=== PATIENT | female | born 1935 | race Caucasian/White ===

== ENCOUNTER 2018-05-23 13:10 | Inpatient (IN) | payer OTHER, MEDICAID ==
[~2018-05-23] VITALS: Ht 154.9 cm; Wt 59.9 kg
[2018-05-23 13:12] VITALS: BP 127/65
--- NOTE | 2018-05-23 13:42 | NUR ---
BP LOW AFTER CARDIZEM BOLUS. DR GODINEZ NOTIFIED. NS BOLUS GIVEN
[2018-05-23] MEDS ORDERED: FLONASE 0.05%50 MCG NASAL (13:43)
[2018-05-23] MEDS ORDERED: PRADAXA150 MG PO (13:43)
[2018-05-23] MEDS ORDERED: REMERON15 MG PO (13:44)
[2018-05-23] MEDS ORDERED: COLACE100 MG PO (13:44)
[2018-05-23] MEDS ORDERED: TYLENOL325 MG PO (13:44)
[2018-05-23] MEDS ORDERED: ZOFRAN ODT4 MG PO (13:45)
[2018-05-23] MEDS ORDERED: MIRALAX17 GM PO (13:45)
[2018-05-23] MEDS ORDERED: TOPROL XL25 MG PO (13:45)
[2018-05-23] MEDS ORDERED: SENNA8.6 MG PO (13:45)
[2018-05-23] MEDS ORDERED: ZANTAC 150MG T150 MG PO (13:45)
[2018-05-23] MEDS ORDERED: VITAMINC500 PO (13:46)
[2018-05-23] MEDS ORDERED: DILTIAZEM 24HR180 M2 PO (13:46)
[2018-05-23] MEDS ORDERED: LASIX 40 MG TAB40 M2 PO (13:46)
[2018-05-23] MEDS ORDERED: LIDOCAINE PAIN1 EACH TOP (13:47)
[2018-05-23] MEDS ORDERED: IRON325 PO (13:47)
[2018-05-23] MEDS ORDERED: VITAMIN D1000 UNI1 PO (13:48)
[2018-05-23] MEDS ORDERED: POTASSIUM20 PO (13:48)
[2018-05-23] MEDS ORDERED: ZAROXOLYN 5MG TA5 MG PO (13:48)
[2018-05-23] MEDS ORDERED: SIMETHICON CHEW80 M1 PO (13:48)
[2018-05-23 13:49] LABS: HEMATOCRIT 37.3 % (37.0-47.0); HEMOGLOBIN 11.7 gm/dL (12.0-15.0); MCHC 31.5 g/dL (28.0-37.0); MCV 88.8 fL (80.0-100.0); MPV 8.7 fl. (7.2-11.1); NUCLEATED RBCS 2 /100WBC; PLATELET COUNT* 295 thou/uL (150-400); RDW-CV 18.6 % (10.5-14.5); WBC 13.3 thou/uL (4.0-11.0)
[2018-05-23 13:58] LABS: CALCIUM 8.5 mg/dL (8.5-10.1); CREATININE 1.5 mg/dL (0.6-1.3); POTASSIUM 3.4 mmol/L (3.5-5.1)
[2018-05-23 14:02] LABS: ABSOLUTE LYMPHOCYTES 0.8 thou/uL (0.8-5.3); ABSOLUTE MONOCYTES 0.4 thou/uL (0.0-1.2); ABSOLUTE NEUTROPHILS 12.1 thou/uL (1.6-8.1); PLATELET ESTIMATE ADEQUATE
[2018-05-23 14:04] LABS: ANISOCYTOSIS 1+; HYPOCHROMASIA 1+
[2018-05-23 14:11] LABS: ALBUMIN 2.5 g/dL (3.4-5.0); MAGNESIUM 2.3 mg/dL (1.8-2.4); TOTAL BILIRUBIN 0.5 mg/dL (<0.1-1.0); TOTAL PROTEIN 5.5 g/dL (6.4-8.2); TROPONIN-I LEVEL 0.07 ng/mL (<0.06)
--- NOTE | 2018-05-23 20:14 | NUR ---
VSS, ASSUMED CARE OF PT FROM ER, AT 1830, PT IS CONFUSED AND IS A&O1-2, ON 2L NC TRACING AFIB ON THE MONITOR, STATES BELLY PAIN AND HAS HAQ IN PLACE AND IS DRAIINING, PT IS MAS ASSIST UP AND HAS FALL PRECAUTIONS IN PLACE WITH CALL LIGHT IN REACH, PT HAS CARDIEM DRIP AT 5 ML/HR, HOURLY ROUNDS COMPLETED, PT ADMIT PART 1 AND 2 HAVE BEEN COMPLETED,
--- NOTE | 2018-05-23 20:26 | NUR ---
PHARMACY DOSENT CARRY PRADAXA AND JOVANNY BYNUM WANTED 110MG AND PT USES 150MG SO, THIS PT WILL NEED TO BRING IN HOME DOSE AND WORK DR TO FIND A THE RIGHT MG DOSE.
[2018-05-24] VITALS: BP 95/55
[2018-05-24 04:00] VITALS: BP 125/74
--- NOTE | 2018-05-24 05:21 | NUR ---
FINISHED ADMIT ASSESSMENT. PT C/O PAIN AND DISCOMFORT AND NOTIFIED PHYSICIAN. GOT PAIN MEDICATION ORDERED. Q2TURN, ABLE TO MAKE SOME NEEDS KNOWN, CONFUSED AND IS ABOUT A & O X2. HAQ DRAINING APPROPRIATELY. WILL CONTINUE TO MONITOR.
--- NOTE | 2018-05-24 06:13 | NUR ---
PT HAS BEEN TURNED Q2HR BY THIS NURSE AND MANAGER ORGANIZATIONAL ON FLOOR. NO WOUNDS NOTED, PT HAS BEEN HELPING TO TURN, AND SOME PAIN IS NOTED FROM PT DURING TURNS. WILL CONTINUE TO MONITOR AND TO CONTROL PAIN.
[2018-05-24 08:45] VITALS: BP 123/72
--- NOTE | 2018-05-24 09:30 | NUR ---
Pt is A&O with confusion, dtr at bedside to provide accurate . Resides at [facility], spoke with Janet at [facility], they are able to accept Pt back at dc. Pt is wc bound, dtr states that staff assist with all IADLS, including pushing Pt's wc. Pt wears o2. Goal is to return to [facility] at dc. Following.
--- NOTE | 2018-05-24 11:10 | EKG ---
[place] [address] ELECTROCARDIOGRAM REPORT Name: KATINAATAHIRAGRETCHEN Room: [address] ADM IN .R.#: [id number] Admission: 05/23/18 Attend Phys: Amelia Eagle Discharge: Date of : 39 Report #: [id number] THIS REPORT FOR: //name// [facility] ED Test Date: 2018-05-23 Test Time: 13:20:44 Pat Name: GRETCHEN SMITH Department: Room: [facility] Gender: F Senior Pharmacy Technician: JACK : 1935 Requested By: Bruce Walker Order Number: [id number] MD: Adryan Cramer Measurements Intervals Aurora Rate: 145 P: PA: QRS: -28 QRSD: 104 T: 169 QT: 264 QTc: 410 Interpretive Statements Atrial fibrillation with rapid V-rate Repolarization abnormality, prob rate related Baseline wander in lead(s) I,II,III,aVL,aVF,V1,V2,V3,V4,V5,V6 No previous ECG available for comparison Electronically Signed On 05-24-2018 11:09:57 CDT by Adryan Cramer [email or web address] <ELECTRONICALLY SIGNED> By: Adryan Cramer MD, [facility] 05/24/18 1109 1320 1320 Adryan Cramer MD, FAC /EPI
[2018-05-24 11:54] VITALS: BP 117/99
--- NOTE | 2018-05-24 12:44 | 2DMMODE ---
[place] [address] 2 D/M-MODE ECHOCARDIOGRAM Name: GRETCHEN SMITH Yaritza Room: [address] IN [facility]#: [id number] Admission: 05/23/18 Attend Phys: Pawan Gonzalez Discharge: Date of : 39 Date of Service: 05/24/18 1244 Report #: [id number] THIS REPORT FOR: //name// APPROVED REPORT Study performed: 05/24/2018 11:09:58 EXAM: Comprehensive 2D, Doppler, and color-flow Echocardiogram Patient Location: In-Patient Room #: [facility] Status: routine BSA: 1.58 HR: 108 bpm BP: 117/99 mmHg Rhythm: Atrial Fibrillation Other Information Study Quality: Good Indications Atrial Fibrillation 2D Dimensions LVEF(%): 73.95 (>50%) IVSd: 11.03 (7-11mm) LVOT Diam: 18.98 (18-24mm) LVDd: 46.74 mm PWd: 9.42 (7-11mm) Ascending Ao: 47.81 (22-36mm) LVDs: 26.72 (25-40mm) Aortic Root: 33.28 mm Gilman's LVEF: 73.95 % Volumes Left Atrial Volume (Systole) LA ESV Index: 70.70 mL/m2 Aortic Valve AoV Peak Rehan.: 1.55 m/s AO Peak Gr.: 9.64 mmHg LVOT Max P.49 mmHg AO Mean Gr.: 4.80 mmHg LVOT Mean P.88 mmHg LVOT Max V: 1.27 m/s AO V2 VTI: 22.52 cm LVOT Mean V: 0.76 m/s BRANDY (VTI): 2.51 cm2 LVOT V1 VTI: 19.96 cm AI Berkshire: 1.62 m/s2 AI PHT: 715.12 [place] [address] 2 D/M-MODE ECHOCARDIOGRAM Name: KATIANATAHIRAGRETCHEN Vigil Room: [address] [facility].#: [id number] Admission: 05/23/18 Attend Phys: Pawan Gonzalez Discharge: Date of : 39 Date of Service: 05/24/18 1244 Report #: [id number] Mitral Valve MV Decel. Time: 125.70 ms MV PHT: 36.45 ms MVA (PHT): 6.04 cm2 TDI Medial E' Rehan.: 0.08 m/s Lateral E' Rehan.: 0.14 m/s Pulmonary Valve PV Peak Rehan.: 0.79 m/s PV Peak Gr.: 2.51 mmHg Tricuspid Valve RAP Estimate: 5.00 mmHg TR Peak Gr.: 21.57 mmHg RVSP: 26.57 mmHg PA Pressure: 26.57 mmHg Left Ventricle The left ventricle is normal size. There is normal LV segmental wall motion. There is normal left ventricular wall thickness. Left ventricular systolic function is normal. The left ventricular ejection fraction is within the normal range. LVEF is 55-60%. This study is not technically sufficient to allow evaluation of the LV diastolic function due to atrial fibrillation. Right Ventricle The right ventricle is normal size. The right ventricular systolic function is normal. Atria Left atrium is severely dilated. The right atrium size is normal. Aortic Valve Mild aortic valve sclerosis. Moderate aortic regurgitation. There is no aortic valvular stenosis. Mitral Valve The mitral valve is normal in structure. Moderate to severe mitral regurgitation No evidence of mitral valve stenosis. Tricuspid Valve The tricuspid valve is normal in structure. Mild tricuspid regurgitation. No pulmonary hypertension[place] [address] 2 D/M-MODE ECHOCARDIOGRAM Name: GRETCHEN SMITH Room: [address]#: [id number] Admission: 05/23/18 Attend Phys: Pawan Gonzalez Discharge: Date of : 39 Date of Service: 05/24/18 1244 Report #: [id number] The pulmonary valve is normal in structure. Mild pulmonic regurgitation. Great Vessels The aortic root and ascending aorta is mildly dilated IVC is normal in size and collapses with >50% inspiration Pericardium There is no pericardial effusion. <Conclusion> The left ventricle is normal size. There is normal left ventricular wall thickness. Left ventricular systolic function is normal. The left ventricular ejection fraction is within the normal range. LVEF is 55-60%. This study is not technically sufficient to allow evaluation of the LV diastolic function due to atrial fibrillation. The right ventricle is normal size. Left atrium is severely dilated. Mild aortic valve sclerosis. Moderate aortic regurgitation. There is no aortic valvular stenosis. The mitral valve is normal in structure. Moderate to severe mitral regurgitation No evidence of mitral valve stenosis. The tricuspid valve is normal in structure. Mild tricuspid regurgitation. No pulmonary hypertension. IVC is normal in size and collapses with >50% inspiration There is no pericardial effusion. There is normal LV segmental wall motion. The aortic root and ascending aorta is mildly dilated <ELECTRONICALLY SIGNED> By: Adryan Cramer MD, FACC 05/24/18 1244 1244 1244 Adryan Cramer MD, FACC /INF
--- NOTE | 2018-05-24 14:38 | NUR ---
RECEIVED REPORT FROM STEPHANIE AND ASSUMED CARE OF PT @ 7215.PT IS A/O X1-2 WITH CONFUSION.VSS,TRACING AFIB ON THE MONITOR IN THE 90S.LUNG SOUNDS ARE CLEAR.IV LEFT AC PATENT AND SALINE LOCKED.IV LEFT WRIST PATENT AND SALINE LOCKED.HAQ SECURE AND PATENT.PT IS CALM AND COOPERATIVE WITH NO C/O PAIN AT TIME OF ASSESSMENT.PT IS BEDREST WITH Q2T.PT LEFT RESTING IN BED WITH CALL LIGHT AND FALL PRECAUTIONS IN PLACE.WILL CONTINUE TO MONITOR. PT HR BEGAN TO GET ELEVATED @ 110S-160S.DARRION DRIPPED RESTARTED RUNNING @ 5.
[2018-05-24 16:00] VITALS: BP 100/55
--- NOTE | 2018-05-24 17:54 | NUR ---
VSS,CARDIAC MONITORING IN PLACE.PT REMAINS ON 2L O2 NC.NO C/O PAIN.IV ANTIBIOTICS GIVEN.IV CARDIZEM RUNNING PER ORDERS.HAQ SECURE AND PATENT.PT TOLERATING DIET WELL.POSITION CHANGES COMPLETED.HOURLY ROUNDING COMPLETED FOR PT SAFETY.CALL LIGHT AND FALL PRECAUTIONS IN PLACE.WILL CONTINUE TO MONITOR FOR DURATION OF SHIFT.
[2018-05-24 20:00] VITALS: BP 105/56
[2018-05-25] VITALS: BP 109/58
[2018-05-25 04:00] VITALS: BP 151/68
--- NOTE | 2018-05-25 05:51 | NUR ---
ASSUMED PT CARE AT 1930. ASSESSMENT COMPLETED CHARTED. ABLE TO MAKE SOME NEEDS KNOWN. PT ON BEDREST WITH HAQ. CARDIZEM DRIP AT 5ML/HR. SOME PAIN NOTED IN EPIGASTRIC. WILL CONTINUE TO MONITOR.
--- NOTE | 2018-05-25 07:19 | CON ---
[address] [address] CONSULTATION Name: GRETCHEN SMITH Room: [address] IN M.R.#: [id number] Admission: 05/23/18 Attend Phys: Amelia Eagle Discharge: Date of : 39 Report #: [id number] THIS REPORT FOR: //name// CC: [facility] physician/PCP Pawan Gonzalez TYPE OF REPORT: Cardiology consultation. INDICATION: Atrial fibrillation with rapid ventricular response and atypical chest pain. HISTORY OF PRESENT ILLNESS: The patient is a very pleasant 83-year-old white female with history of chronic atrial fibrillation. She had been on medication for rate control and anticoagulation without difficulty. She was admitted to the hospital with some upper abdominal and lower chest discomfort. She has ruled out for myocardial infarction. She has no history of coronary artery disease or myocardial infarction. Her chest discomfort has resolved. Enzymes are unremarkable. At the time of my interview, she is comfortable. Her heart rate has improved. PAST MEDICAL HISTORY: 1. Chronic atrial fibrillation. 2. Heart failure, likely diastolic. 3. Pulmonary nodule. 4. Abdominal aortic aneurysm. SOCIAL HISTORY: The patient does not smoke now nor has she ever. She does not drink alcohol. She resides at [facility]. She has family attendants with her. HOME MEDICATIONS: Flonase nasal spray 2 sprays daily, Tylenol p.r.n., Colace 100 mg p.r.n., Remeron 15 mg a half a tablet at bedtime, MiraLax 17 grams daily, Zantac 150 mg at bedtime, senna 8.6 mg daily, Zofran p.r.n., metoprolol succinate 25 mg daily, diltiazem ER 180 mg daily, furosemide 40 mg daily, vitamin C 500 mg daily, iron sulfate 325 mg daily, Lidoderm p.r.n., metolazone 5 mg daily, vitamin D 1000 units daily, potassium chloride 20 mEq daily, simethicone 80 mg b.i.d. p.r.n. and Pradaxa 150 mg b.i.d. ALLERGIES: CLINDAMYCIN, HYDROCODONE, HYDROXYZINE and PENICILLIN. PHYSICAL EXAMINATION: VITAL SIGNS: Blood pressure 123/72 and pulse presently in the 120s and irregular. GENERAL: This is a pleasant elderly female, in no distress. Mood and affect appropriate. HEENT: Extraocular muscles intact. Mucous membranes moist. NECK: Shows no jugular venous distention. There [place] [address] CONSULTATION Name: GRETCHEN SMITH Room: [address]#: [id number] Admission: 05/23/18 Attend Phys: Amelia Eagle Discharge: Date of : 39 Report #: [id number] CHEST: Reveals clear lung nuno. CARDIOVASCULAR: Reveals an irregularly irregular rhythm that is slightly tachycardic without gallop or murmur. ABDOMEN: Reveals diffuse tenderness with bowel sounds present. EXTREMITIES: Show no edema. SKIN: Warm and dry. CARDIOLOGICAL DATA: A 12-lead EKG shows atrial fibrillation with some nonspecific ST-segment depression and rapid ventricular response rate. LABORATORY DATA: Labs are reviewed. Sodium 141, potassium 3.4, chloride 100, bicarbonate 36, BUN 57, creatinine 1.5 and serum glucose 187. Troponin 0.06. NT-pro-BNP 2908. White blood cell count 13.3; hemoglobin 11.7 and platelet count 295,000. RADIOLOGICAL DATA: Chest x-ray shows atelectasis without acute pulmonary vascular congestion. CT abdomen shows a 5.1 cm abdominal aortic aneurysm and a 9 mm left renal aneurysm. IMPRESSION AND RECOMMENDATIONS: 1. Chronic atrial fibrillation. We will continue diltiazem and metoprolol for rate control, decreasing Pradaxa to 75 mg b.i.d. as she is having some bruising with her current dose. 2. Atypical chest discomfort, doubt this represents acute coronary syndrome. We will obtain echocardiogram. 3. Abdominal aortic aneurysm. Vascular Surgery consult has been submitted. 4. Abdominal pain, per primary physician. <ELECTRONICALLY SIGNED> By: Jose A Palma MD, FACC 05/25/18 0719 1055 Micdashawn Palma MD, FACC /nt
[2018-05-25 08:00] VITALS: BP 111/62
[2018-05-25 13:52] VITALS: BP 117/56
[2018-05-25 14:10] LABS: URINE BILIRUBIN NEGATIVE (Negative); URINE BLOOD 3+ (Negative); URINE CLARITY CLEAR; URINE COLOR YELLOW; URINE GLUCOSE-RANDOM NEGATIVE (Negative); URINE KETONES NEGATIVE (Negative); URINE LEUKOCYTES-REFLEX 1+ (Negative); URINE NITRITE-REFLEX NEGATIVE (Negative); URINE PROTEIN NEGATIVE (Negative); URINE UROBILINOGEN 0.2 E.U./dl (0.2-1.0)
[2018-05-25 14:42] LABS: BACTERIA-REFLEX 1-9 Few /HPF (None Seen); SQUAMOUS 0-3 Few /LPF (0-3); URINE RBC >20 Many /HPF (0-2); URINE WBC-REFLEX 0-5 Rare /HPF (0-5)
[2018-05-25 14:43] LABS: CASTS None Seen /LPF (None Seen); URIC ACID CRYSTALS 0-3 Few /LPF (None Seen)
[2018-05-25 16:38] LABS: CALCIUM 8.3 mg/dL (8.5-10.1); CREATININE 1.2 mg/dL (0.6-1.3); POTASSIUM 3.1 mmol/L (3.5-5.1)
[2018-05-25 16:49] VITALS: BP 107/51
--- NOTE | 2018-05-25 19:39 | NUR ---
ASSUMED PT CARE AT 0730, FULL ASSEMENT DONE CHARTED. PT ALERT TO SELF THIS AM BUT MORE ALERT THIS EVENING. PT C/O SOME PAIN IN RIGHT FLANK, LIDOCAINE PATCH ORDERED. IV CARDIZEM DC'D, SWITCHED TO PO, PT AFIB CONTROLLED IN THE 90'S. PT UP WITH PT TO CHAIR THIS AFTERNOON, FLOEY REMOVED. PT DENIES THE NEED TO VOID AT THIS TIME. PT REPORTS NEEDS TO STAFF BUT ISNT ATTEMPTING TO USE HER CALL LIGHT, PT ROUNDED ON FREQUENTLY. FALL PRECATUIONS IN PLACE. REPORT GIVEN TO LUCY TAN.
[2018-05-25 19:45] VITALS: BP 116/68
[2018-05-26] VITALS: BP 117/51
[2018-05-26 04:00] VITALS: BP 132/54
[2018-05-26 05:39] LABS: HEMATOCRIT 31.6 % (37.0-47.0); MCH 28.9 pg (26.0-34.0); MCHC 31.8 g/dL (28.0-37.0); MCV 90.8 fL (80.0-100.0); MPV 8.4 fl. (7.2-11.1); RBC 3.48 mil/uL (4.20-5.00); RDW-CV 20.3 % (10.5-14.5); WBC 9.4 thou/uL (4.0-11.0)
--- NOTE | 2018-05-26 06:04 | NUR ---
RECEIVED REPORT AND ASSUMED CARE AT 1900. VSS. CARDIAC MONITORING IN PLACE. PT DENIES ANY COMPLAINTS OF PAIN. ASSESSMENT COMPLETED CHARTED. PT UP WITH ASSIST OF 2, 2L NC. PT Q2T. DISCUSSED PLAN OF CARE WITH PT, VERBALIZED UNDERSTANDING. PT POSITION CHANGED EVERY 2 HOURS, HEELS OFF LOADED. PT REPORTED PAIN IN R SIDE, PRN MEDICATION ADMIN PER ORDERS. PT UNABLE TO VOID ON SHIFT. BLADDER SCAN SHOWED 854ML, PER DR ORDERS HAQ WAS PLACED. HOURLY ROUNDING COMPLETED, ALL NEEDS MET. BED LOCKED IN LOWEST POSITION, CALL LIGHT WITHIN REACH, BED ALARM ON. WILL CONTINUE TO MONITOR FOR REMAINDER OF THE SHIFT
[2018-05-26 06:20] LABS: CALCIUM 8.1 mg/dL (8.5-10.1); CREATININE 1.1 mg/dL (0.6-1.3); MAGNESIUM 2.4 mg/dL (1.8-2.4)
[2018-05-26 06:21] LABS: POTASSIUM 2.9 mmol/L (3.5-5.1)
[2018-05-26 08:00] VITALS: BP 97/64
[2018-05-26 11:45] VITALS: BP 101/59
--- NOTE | 2018-05-26 11:51 | NUR ---
ASSUMED CARE OF PATIENT THIS AM AT 0730. PATIENT IS ALERT AND ORIENTED X 3 TO 4. SHE C/O BACK PAIN WITH MINIMAL MOVEMENT. TELE SHOWS AFIB. O2 IS ON AT 2 LITERS NC. PATIENT ASSISTED WITH ADLS THROUGHOUT THE DAY. DR BARRIOS FOR ADDITIONAL PAIN MEDICATION. SEVERINO IS TO DD. POTASSIUM LEVEL LOW PER LAB. ELECTROLYTE REPLACEMENT STARTED. PATIENT ASSISTED TO TURN Q 2 HR. MEDICATED FOR C/O PAIN X 1. NO RELIEF NOTED AT THIS TIME. WILL CONTINUE TO MONITOR.
[2018-05-26 15:26] VITALS: BP 102/49
--- NOTE | 2018-05-26 15:52 | CON ---
[address] [address] CONSULTATION Name: GRETCHEN SMITH Room: [address] IN [facility].#: [id number] Admission: 05/23/18 Attend Phys: Amelia Eagle Discharge: Date of : 39 Report #: [id number] THIS REPORT FOR: //name// CC: [facility] physician/PCP Pawan Gonzalez DATE OF SERVICE: 05/25/2018 Nephrology Consultation REASON FOR CONSULTATION: Elevated creatinine. HISTORY OF PRESENT ILLNESS: An 83-year-old female who was admitted with a-fib and RVR and during the course of imaging was found to have ascending thoracic aortic aneurysm, as well as a left renal artery aneurysm, for which conservative management is planned. I was asked to see her because of an elevated creatinine. Her last creatinine was 1.5 on 05/23. Baseline creatinine is unknown. The patient has a history of dementia and is not able to provide detailed history. She appears to be comfortable. No complaints. REVIEW OF SYSTEMS: Constitutional, psych, heme, eyes, ENT, respiratory, cardiac, GI, , and endocrine all negative except as documented above. PAST MEDICAL HISTORY: History of chronic a-fib, abdominal aortic aneurysm. SOCIAL HISTORY: No tobacco. FAMILY HISTORY: Not pertinent in this 83-year-old female. MEDICATIONS: Reviewed. PHYSICAL EXAMINATION: VITAL SIGNS: Blood pressure 117/56, pulse 84, respirations 18, temperature 36.1. GENERAL: No acute distress. HEENT: Eyes: Open. Ears: Externally normal. CARDIOVASCULAR: Regular rate. LUNGS: Diminished breath sounds. ABDOMEN: Soft, positive bowel sounds, nontender. PSYCHIATRY: Awake. LABORATORY DATA: White cell count 13.3, hemoglobin 11.7, platelets 295. This is from 05/23. Sodium 141, potassium 3.4, chloride 100, bicarbonate 36, BUN 57, creatinine 1.5, glucose 187, calcium 8.5, magnesium 2.3. ASSESSMENT AND PLAN: [place] [address] CONSULTATION Name: GRETCHEN SMITH Room: [address] IN [facility].#: [id number] Admission: 05/23/18 Attend Phys: Amelia Eagle Discharge: Date of : 39 Report #: [id number] 1. Acute kidney injury kidneys were okay on CT scan. On 05/23, creatinine 1.5, baseline creatinine unknown. Urinalysis is noted. 2. Ascending thoracic aortic aneurysm, 5.1 cm in size. 3. 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 4. Atrial fibrillation. 5. Tuvwqylm-nd-lsnqsk mitral insufficiency. 6. Hematuria, noted on urinalysis. 7. Dementia. PLAN: 1. Conservative management is planned for the aneurysms. Vascular Surgery has seen the patient. 2. Metolazone has been discontinued. 3. She will need a repeat UA once Crump is discontinued and possibly urology evaluation. 4. Last creatinine was 2 days ago. We will send 1 now and again in the a.m. She is currently on Lasix and potassium supplementation. Okay to continue for the time being. Thank you for requesting my opinion in the care and management of this patient. <ELECTRONICALLY SIGNED> By: Howard Tyson MD 05/26/18 1552 1613 [id number] Tyson MD /nt
--- NOTE | 2018-05-26 16:54 | NUR ---
CONTINUE TO FOLLOW, ALVA/FRANK ASKED TO MEET WITH CM TO ASK QUESTIONS. SHE WANTED INFO ON HOSPICE AND PALLIATIVE CARE. EXPLAINED BOTH AND GAVE HER SOME NUMBERS. SHE STATED THAT HER IS PT'S DPOA BUT HE IS OUT OF THE COUNTRY UNTIL NEXT WEEK. MADE AWARE THAT PT MAY RETURN TO [facility] TOMORROW. SHE IS CONTACT FOR DC. WILL FOLLOW
[2018-05-26 20:00] VITALS: BP 108/70
[2018-05-27] VITALS: BP 107/44
[2018-05-27 04:00] VITALS: BP 113/77
--- NOTE | 2018-05-27 06:03 | NUR ---
RECEIVED REPORT AND ASSUMED CARE AT 1900. VSS. CARDIAC MONITORING IN PLACE. ASSESSMENT COMPLETED CHARTED. DISCUSSED PLAN OF CARE WITH PT, VERBALIZED UNDERSTANDING. PT DENIES COMPLAINTS OF PAIN. MEDICATION ADMIN PER EMAR. PT UP WITH ASSIST OF TWO, ON 2L NC. PATIENT REPOSITIONED EVERY TWO HOURS, HEELS OFF LOADED. HOURLY ROUDNING COMPLETED ALL NEEDS MET. PT REPORTED PAIN IN RIBS, PRN MEDICATION ADMIN PER ORDERS. BED LOCKED IN LOWEST POSITION, CALL LIGHT WITHIN REACH, BED ALARM ON. WILL CONTINUE TO MONITOR FOR REMAINDER OF THE SHIFT
[2018-05-27 08:20] VITALS: BP 113/59
--- NOTE | 2018-05-27 08:20 | NUR ---
ASSUMED PT. CARE AND RECEIVED REPORT AT 0730. PT. A/OX4, VSS, MONITOR ON TRACING AFIB. PT. STATES SHE HAS SOME MINOR ACHINESS ON RIGHT FLANK AREA. LIDOCAIN PATCH GIVEN WITH A.M. MEDS. FULL ASSESSMENT COMPLETED, REFER TO CHARTING. SEVERINO NOTED TO DD WITH CLEAR YELLOW URINE. PT. ASKING ABOUT TAKING OUT, DISCUSSED CURRENT RETENTION ISSUES. CALL LIGHT IN REACH, WILL CONTINUE WITH PLAN OF CARE.
--- NOTE | 2018-05-27 13:57 | NUR ---
WAS ASKED TO SPEAK WITH FRANK/ALVA AGAIN. SHE NOW IS INTERESTED IN TALKING WITH A HOSPICE TO GET INFO. SHE ASKED FOR [facility]. CALLED AND FAXED ORDER TO [facility] AND THEY WILL ARRANGE WITH ALVA.
[2018-05-27 15:27] VITALS: BP 107/51
[2018-05-27 19:30] VITALS: BP 116/63
--- NOTE | 2018-05-27 19:40 | NUR ---
PT. STABLE THROUGH OUT SHIFT. TREATED WITH TRAMADOL TODAY FOR PAIN AND HEATING PAD APPLIED. PT. INITIALLY REPORTED POOR PAIN CONTROL AFTER RECEIVING MED, BUT SLEPT APPROX. 1 HOUR AFTER RECEIVING BOTH TIMES AND APPEARED COMFORTABLE. APPETITE FAIR AT ALL MEALS. UP TO CHAIR THIS MORNING AFTER BREAKFAST FOR APPROX. 3 HOURS. INCONT. OF STOOL X 2. HOURLY ROUNDING COMPLETED THROUGH OUT THE DAY FOR PT. SAFETY.
[2018-05-28] VITALS: BP 119/56
[2018-05-28 04:00] VITALS: BP 108/55
--- NOTE | 2018-05-28 08:19 | NUR ---
RECEIVED REPORT AND ASSUMED CARE AT 1900. VSS. CARDIAC MONITORING IN PLACE. PT DENIES ANY COMPLAINTS OF PAIN. ASSESSMENT COMPLETED CHARTED. DISCUSSED PLAN OF CARE WITH PT, VERBALIZED UNDERSTANDING. MEDICATION ADMIN PER ORDERS. POSITION CHANGED EVERY TWO HOURS, HOURLY ROUNDING COMPLETED AND ALL NEEDS MET. BED LOCKED IN LOWEST POSITION, CALL LIGHT WITHIN REACH, BED ALARM ON. PT ON 2L NC, UP WITH ASSIST OF 2. NURSING WILL CONTINUE TO MONITOR
[2018-05-28 08:31] VITALS: BP 110/59
--- NOTE | 2018-05-28 11:31 | CON ---
[facility] [address] [place] [address] CONSULTATION Name: SARAHGRETCHEN Vigil Room: [address] IN .R.#: [id number] Admission: 05/23/18 Attend Phys: Amelia Eagle Discharge: Date of : 39 Report #: [id number] THIS REPORT FOR: //name// CC: [facility] physician/PCP Pawan Gonzalez DATE OF SERVICE: 05/26/2018 REASON FOR CONSULTATION: Urinary retention. HISTORY OF PRESENT ILLNESS: The patient is an 83-year-old female who was admitted with atrial fibrillation with RVR, as well as some breathing issues. From what I gather, a Crump catheter was placed on admission. She failed a voiding trial and Crump was replaced. The patient denies any prior urinary retention problems. She denies UTIs or hematuria. She also denies having a catheter before. She does have some urge incontinence at baseline, but denies taking any medications for this. She denies any constipation and has been having regular bowel movements. Per the records, she does have a history of chronic pain and they are attempting to manage this with non-opiates. PAST MEDICAL HISTORY: Includes a-fib, abdominal aortic aneurysm, hypertension, sleep apnea, anxiety, heart failure, hypothyroidism, anemia, high cholesterol, and some memory problems. PAST SURGICAL HISTORY: The patient reports hysterectomy. ALLERGIES: CLINDAMYCIN, HYDROCODONE, HYDROXYZINE, and PENICILLIN. FAMILY HISTORY: Reviewed and noncontributory. SOCIAL HISTORY: The patient is nonsmoker and denies any alcohol use. MEDICATIONS: Reviewed. Please see inpatient medical record. REVIEW OF SYSTEMS: A 12-point review of systems is performed and is negative except as noted above in HPI. PHYSICAL EXAMINATION: VITAL SIGNS: Temperature is 36.5, pulse is 66, respirations 12, blood pressure 102/49. GENERAL: She is a well-developed, well-nourished elderly white female in no acute distress. She is alert and oriented, answers questions appropriately. HEENT: Normocephalic, atraumatic. HEART: Regular. RESPIRATIONS: [place] [address] CONSULTATION Name: GRETCHEN SMITH Room: [address] IN [facility]#: [id number] Admission: 05/23/18 Attend Phys: Amelia Eagle Discharge: Date of : 39 Report #: [id number] ABDOMEN: Soft, nontender, nondistended. She has a midline scar. GENITOURINARY: She has a Crump catheter in place and urine is clear. EXTREMITIES: Without clubbing, cyanosis or edema. SKIN: Without lesions. She does have some bruising on her arms. LABORATORY DATA: Her white count is 9.4, hemoglobin is 10. Her BUN and creatinine are 34 and 1.1 respectively. She had a urinalysis yesterday, I believe from her catheter, which showed some red cells, no white cells, some uric acid crystals and a few bacteria. Culture does not look like was done on that urine specimen. IMAGING DATA: She had a CT scan on admission without contrast and this showed normal kidneys, but did show a distended bladder. ASSESSMENT AND PLAN: 1. Urinary retention. The patient has failed 1 voiding trial here in the hospital. There are tentative plans to discharge her to nursing facility tomorrow. I would recommend leaving catheter in for several days and can [facility] a [facility]. Per review of the notes, there is some discussion about potentially palliative care on this patient, so if that is decided, they could leave a Crump catheter in place for comfort if needed or if she has recurrent retention. We will sign off. Please call if there are any questions or concerns. <ELECTRONICALLY SIGNED> By: María Jorge MD 05/28/18 1131 1623 [id number] Jorge MD /nt
[2018-05-28 12:01] VITALS: BP 127/79
--- NOTE | 2018-05-28 13:59 | NUR ---
CONTINUE TO FOLLOW. MET WITH PT'S ALVA/FRANK. SHE MET WITH [facility] LAST EVENING AND THEY ARE INTERESTED IN ADDING THEIR SERVICES. PLAN IS STILL FOR PT TO RETURN TO [facility]. PT'S DPOA IS OUT OF THE COUNTRY UNTIL THU. DTR STATED THAT THEY HAVEN'T TALKED WITH PT YET ABOUT THE HOSPICE AND WANT TO DO THAT THEMSELVES.
[2018-05-28 16:06] VITALS: BP 104/52
--- NOTE | 2018-05-28 17:51 | NUR ---
PT CARE ASSUMED AFTER REPORT. ASSESSMENT COMPLETE. AFIB/AFLUTTER ON MONITOR. SEVERINO TO DUNG. PT WITH C/O ABD PAIN AND R POSTERIOR RIB PAIN. PRN PAIN MEDICATION GIVEN PER ORDER. HEATING PAD TO ABD. O2 2L NC. FALL PRECAUTIONS IN PLACE INCLUDING BED ALARM. SLOWLY PROGRESSING TOWARDS GOALS.
[2018-05-28 19:48] VITALS: BP 108/54
[2018-05-29] VITALS: BP 101/54
[2018-05-29 04:00] VITALS: BP 94/59
[2018-05-29 05:43] LABS: HEMATOCRIT 26.7 % (37.0-47.0); HEMOGLOBIN 8.5 gm/dL (12.0-15.0); MCH 28.7 pg (26.0-34.0); MCHC 31.7 g/dL (28.0-37.0); MCV 90.5 fL (80.0-100.0); MPV 8.4 fl. (7.2-11.1); RBC 2.95 mil/uL (4.20-5.00); RDW-CV 21.3 % (10.5-14.5); WBC 11.2 thou/uL (4.0-11.0)
[2018-05-29 06:43] LABS: CALCIUM 8.2 mg/dL (8.5-10.1); CREATININE 1.1 mg/dL (0.6-1.3); MAGNESIUM 2.2 mg/dL (1.8-2.4); POTASSIUM 3.8 mmol/L (3.5-5.1)
--- NOTE | 2018-05-29 06:43 | NUR ---
PT IS ABLE TO COMMUNICATE HER NEEDS TO STAFF EFFECTIVELY. CURRENT PAIN MEDICATION REGIMEN HAS BEEN ADEQUATE FOR CONTROLLING HER PAIN UP TO THIS TIME. HAQ IS PATENT. SHE IS TAKING HER PILLS WHOLE IN APPLESAUCE OR PUDDING; TOLERATING WELL. POSSIBLE DISCHARGE TO [facility] SOON.
--- NOTE | 2018-05-29 08:27 | NUR ---
PT RESTING IN BED, APPEARS ALERT O X 4, DENIES CHEST PAIN, DENIES SOB AT REST, ALTHOUGH APPEARS SL DYSPNEIC AT REST, O2 DATS 94% ON O2 AT 2L PER NC , DENIES PAIN OR DISCOMFORT
[2018-05-29 08:29] VITALS: BP 109/69
[2018-05-29 11:54] VITALS: BP 106/58
[2018-05-29 15:53] VITALS: BP 106/47
--- NOTE | 2018-05-29 19:20 | NUR ---
pt progressing towards goal, reporst adeq pain control with lidocaine patch, ate approx 25% of all meals, appears sl dyspneic at rest. o2 at 2l sats mid 90s , cordelia to jose c RAZO ily has been discussing pt back to residential with hospice, is DNR, o x 2-3 , easily consused, can make needs known
[2018-05-29 20:33] VITALS: BP 110/55
[2018-05-30] VITALS (7 sets, daily range): BP systolic 91–118; BP diastolic 45–72
--- NOTE | 2018-05-30 07:57 | NUR ---
PT IS ABLE TO COMMUNICATE HER NEEDS TO STAFF WITH ONLY MINOR DIFFICULTY; SHE SEEMS TO BE [id number] AND IS FORGETFUL FREQUENTLY. CURRENT PAIN MEDICATION REGIMEN HAS BEEN ADEQUATE FOR CONTROLLING HER PAIN UP TO THIS TIME; SHE HAS BEGUN REFUSING HER TRAMADOL THIS MORNING, BUT WILL TAKE TYLENOL. CODE STATUS IS DNR. SEVERINO IS PATENT. POSSIBLE DISCHARGE ON THURSDAY.
[2018-05-31 03:36] VITALS: BP 108/65
--- NOTE | 2018-05-31 07:54 | NUR ---
PT IS ABLE TO COMMUNICATE HER NEEDS TO STAFF WITH ONLY MINOR DIFFICULTY; SHE IS A LITTLE PILOT STATION AND FORGETFUL AT TIMES. CURRENT PAIN MEDICATION REGIMEN HAS BEEN ADEQUATE FOR CONTROLLING HER PAIN UP TO THIS TIME. HAQ IS PATENT. PT PREFERRS TO LAY MORE FLAT; HAS INCREASED PAIN WHEN SITTING UP. PILLS WHOLE IN APPLESAUCE, PUDDING, ETC. POSSIBLE D/C TO HOSPICE VS SNF SOON. PT CAN BECOME ANXIOUS AFTER FIRST WAKING UP D/T FORGETFULNESS; REASSURANCE AND A SNACK HAVE BEEN HELPFUL.
[2018-05-31 09:00] VITALS: BP 132/65
--- NOTE | 2018-05-31 11:42 | NUR ---
Nutrition: Pt assessed for LOS. Likely discharge soon to hospice vs SNF. Eating ~50% of 2gm Na diet. +BM yday. Wt: 136. Labs, RX, Hx noted. No nutrition concerns at this time.
[2018-05-31 12:00] VITALS: BP 111/76
--- NOTE | 2018-05-31 12:40 | NUR ---
ASSUMED PT CARE AT 0700 PT IS ALERT AND ORIENTED X 3 PT IS CONFUSED, PT MOANS IN PAIN AND CALLS OUT IN PAIN GAVE PT TRAMADOL AND APPLIED SCHEDULED LIDOCAINE PATCH REASSESSED PT SHOWS NO SIGNS OF PAIN, PT C/O SOA CHECKED SATS WHICH WHERE BELOW 90 PT O2 WAS DISCONNECTED RECONNECTED OXYGEN RECHECKED PT SAT AND WERE ABOVE 90 ON 3L/NC, PT IS AFIB ON THE MONITOR, PT IS UP WITH ASSIST X 1 PT IS SITTING IN CHAIR, PT IS A FALL RISK BED AND CHAIR ALARMS ARE ON, WILL CONTINUE TO MONITOR
[2018-05-31] MEDS ORDERED: TRAMADOL 50 MG50 MG PO (13:08)
--- NOTE | 2018-05-31 13:50 | NUR ---
ORDERS NOTED FOR DC TO LTC, BACK TO [facility]. MET WITH PT AND ALVA/FRANK, IN AGREEMENT. CALLED AND FAXED DC ORDERS TO [facility]. CHART COPIED. [facility] SET UP W/C VAN FOR 330-4PM. RN HAS NUMBER TO CALL REPORT
== END 2018-05-31 17:18 | DRG 871 ==
LOC: M.ERS 13:10 → M.2W 16:30 → M.TBA-ER 16:30 → M.2W 18:07
PROVIDERS: Emergency Medicine Emergency Medical Services; Family Medicine; Internal Medicine; Internal Medicine Nephrology; ADMIT Internal Medicine
DX: A41.9 Sepsis, unspecified organism (principal); I50.33 Acute on chronic diastolic (congestive) heart failure; G92 Toxic encephalopathy; S22.31XA Fracture of one rib, right side, initial encounter for closed fracture; N17.9 Acute kidney failure, unspecified; E44.0 Moderate protein-calorie malnutrition; M48.54XA Collapsed vertebra, not elsewhere classified, thoracic region, initial encounter for fracture; N39.0 Urinary tract infection, site not specified; M48.56XA Collapsed vertebra, not elsewhere classified, lumbar region, initial encounter for fracture; I13.0 Hypertensive heart and chronic kidney disease with heart failure and stage 1 through stage 4 chronic kidney disease, or unspecified chronic kidney disease; R65.20 Severe sepsis without septic shock; F41.9 Anxiety disorder, unspecified; I48.2 Chronic atrial fibrillation; I71.2 Thoracic aortic aneurysm, without rupture; E03.9 Hypothyroidism, unspecified; I72.2 Aneurysm of renal artery; Z66 Do not resuscitate; I08.0 Rheumatic disorders of both mitral and aortic valves; R33.9 Retention of urine, unspecified; N18.3 Chronic kidney disease, stage 3 (moderate); F03.90 Unspecified dementia, unspecified severity, without behavioral disturbance, psychotic disturbance, mood disturbance, and anxiety; E87.6 Hypokalemia; I71.4 Abdominal aortic aneurysm, without rupture; E78.00 Pure hypercholesterolemia, unspecified; X58.XXXA Exposure to other specified factors, initial encounter; Y93.89 Activity, other specified; Z90.710 Acquired absence of both cervix and uterus; Z68.25 Body mass index [BMI] 25.0-25.9, adult; Y92.89 Other specified places as the place of occurrence of the external cause; Y99.8 Other external cause status; Z79.51 Long term (current) use of inhaled steroids; Z79.899 Other long term (current) drug therapy; Z88.0 Allergy status to penicillin; Z88.1 Allergy status to other antibiotic agents; Z88.8 Allergy status to other drugs, medicaments and biological substances